=== PATIENT | female | born 1990 | race African-American/Black ===

== ENCOUNTER 2023-01-25 10:00 | Emergency (ER) | payer BC ==
[~2023-01-25] VITALS: Ht 152.4 cm; Wt 55.6 kg
[2023-01-25 11:56] LABS: CALCIUM 8.7 mg/dL (8.4-10.2); CREATININE, serum 0.75 mg/dL (0.57-1.11); POTASSIUM 3.7 mmol/L (3.5-4.5)
[2023-01-25] MEDS ORDERED: CLEOCIN HCL300 MG PO (12:39)
[2023-01-25 13:15] VITALS: BP 120/89; PULSE 65; TEMP 98.1
[2023-01-25 13:38] LABS: STREP SCREEN NEGATIVE
== END 2023-01-25 13:15 | disposition home or self-care (01) ==
LOC: COL.ER 10:00
PROVIDERS: Emergency Medicine
DX: J36 Peritonsillar abscess (principal)
CPT/HCPCS: J1100; Q9967